=== PATIENT | male | born 1930 | race Two or more races ===

== ENCOUNTER 2018-03-14 14:45 | Inpatient (IN) | payer MEDICARE, MEDICAID ==
[~2018-03-14] VITALS: Ht 172.7 cm; Wt 97.1 kg
[2018-03-14 14:45] VITALS: BP 116/74
[~2018-03-14 14:45] MED LIST: ATOR20TA65 PO; BRIM.2 BOTHEYE; DILT180C93 PO; DORZ10DR8 OP; METO10TA3 PO; RIVA20TA PO; SIME125T3 PO; TAMS-11 PO; TIMO5DRO32 OP
[2018-03-14] MEDS ORDERED: HYDROCODONE/ACETAMINOPHEN 5/325MG TABLET PO PRN (17:45)
[2018-03-14 19:17] LABS: BASOPHILS % 0.9 % (0.0-2.0); EOSINOPHILS % 1.5 % (0.0-5.0); HEMATOCRIT. 43.1 % (42.0-52.0); HEMOGLOBIN. 14.5 g/dL (14.0-18.0); LYMPHOCYTES % 20.2 % (20.0-50.0); MEAN CORPUSCULAR HEMOGLOBIN 30.2 pg (28.0-32.0); MEAN CORPUSCULAR VOLUME 89.9 fL (80.0-94.0); MEAN PLATELET VOLUME 9.3 fl (7.4-10.4); MONOCYTES % 9.5 % (2.0-8.0); NEUTROPHILS % 67.9 % (40.0-76.0); PLATELET 127 x1000/uL (130-400); RED BLOOD CELL COUNT 4.79 mill/uL (4.7-6.1); RED CELL DISTRIBUTION WIDTH 13.4 % (11.6-14.6)
[2018-03-14 19:18] LABS: CHLORIDE 107 mEq/L (98-107)
[2018-03-14 19:23] LABS: PROTHROMBIN TIME 10.3 sec (9.4-11.6)
[2018-03-14 20:00] VITALS: BP 136/73
[2018-03-14] MEDS ORDERED: PNEUMOCOCCAL 23-VAL P-SAC VAC 0.5 ML IM ONE (20:00)
[2018-03-14] MEDS ORDERED: WARFARIN SODIUM 5MG TABLET PO NR (20:00)
[2018-03-14] MEDS: ACETAMINOPHEN 650MG/20.3ML UDC PO PRN (21:26)
[2018-03-14] MEDS: ATORVASTATIN CALCIUM 20MG TABLET PO SCH (21:27)
[2018-03-14] MEDS: ZOLPIDEM TARTRATE 5MG TABLET PO PRN (21:28)
[2018-03-14] MEDS: DILTIAZEM HCL 90MG CAPSULE SR 12HR PO SCH (21:28)
[2018-03-14] MEDS: ENOXAPARIN 100MG/ML SYR SUBCUT SCH (21:30)
[2018-03-14] MEDS: TIMOLOL MALEATE 0.25% OPHTH DROPS 5ML EACHEYE SCH (21:33)
[2018-03-15] MEDS: METOCLOPRAMIDE HCL 10MG TABLET PO SCH (06:32)
[2018-03-15 07:05] LABS: PROTHROMBIN TIME 10.7 sec (9.4-11.6)
[2018-03-15 07:21] LABS: CHLORIDE 107 mEq/L (98-107)
[2018-03-15 07:24] LABS: BASOPHILS % 0.8 % (0.0-2.0); EOSINOPHILS % 1.3 % (0.0-5.0); HEMOGLOBIN. 15.1 g/dL (14.0-18.0); LYMPHOCYTES % 20.3 % (20.0-50.0); MEAN CORPUSCULAR HEMOGLOBIN 30.3 pg (28.0-32.0); MEAN PLATELET VOLUME 10.3 fl (7.4-10.4); MONOCYTES % 7.7 % (2.0-8.0); NEUTROPHILS % 69.9 % (40.0-76.0); PLATELET 129 x1000/uL (130-400); RED CELL DISTRIBUTION WIDTH 13.5 % (11.6-14.6)
[2018-03-15 07:54] VITALS: BP 123/60
[2018-03-15] MEDS: SIMETHICONE 80MG TABLET CHEW PO SCH ×3 (09:02→17:18)
[2018-03-15] MEDS: TAMSULOSIN HCL 0.4MG SR CAPSULE PO SCH (09:02)
[2018-03-15] MEDS: DILTIAZEM HCL 90MG CAPSULE SR 12HR PO SCH ×2 (09:02→20:38)
[2018-03-15] MEDS: TIMOLOL MALEATE 0.25% OPHTH DROPS 5ML EACHEYE SCH ×2 (09:03→20:38)
[2018-03-15] MEDS: ENOXAPARIN 100MG/ML SYR SUBCUT SCH ×2 (09:03→20:38)
[2018-03-15] MEDS: DORZOLAMIDE 2% OPHTH 10 ML BOTTLE BOTHEYE SCH (09:03)
[2018-03-15] MEDS: BRIMONIDINE 0.2% OPHTH DROPS 5ML BOTHEYE SCH ×3 (09:03→17:18)
[2018-03-15] MEDS: ACETAMINOPHEN 650MG/20.3ML UDC PO PRN (13:32)
[2018-03-15] MEDS ORDERED: WARFARIN SODIUM 7.5MG TABLET PO NR (18:00)
[2018-03-15 20:00] VITALS: BP 134/60
[2018-03-15] MEDS: ATORVASTATIN CALCIUM 20MG TABLET PO SCH (20:38)
[2018-03-15] MEDS: ZOLPIDEM TARTRATE 5MG TABLET PO PRN (22:08)
[2018-03-16] MEDS: METOCLOPRAMIDE HCL 10MG TABLET PO SCH (06:23)
[2018-03-16 07:32] LABS: BASOPHILS % 0.6 % (0.0-2.0); EOSINOPHILS % 1.3 % (0.0-5.0); HEMATOCRIT. 42.6 % (42.0-52.0); HEMOGLOBIN. 14.6 g/dL (14.0-18.0); LYMPHOCYTES % 26.2 % (20.0-50.0); MEAN CORPUSCULAR HEMOGLOBIN 30.5 pg (28.0-32.0); MEAN CORPUSCULAR VOLUME 89.2 fL (80.0-94.0); MEAN PLATELET VOLUME 9.8 fl (7.4-10.4); MONOCYTES % 8.1 % (2.0-8.0); NEUTROPHILS % 63.8 % (40.0-76.0); PLATELET 127 x1000/uL (130-400); RED BLOOD CELL COUNT 4.77 mill/uL (4.7-6.1); RED CELL DISTRIBUTION WIDTH 13.6 % (11.6-14.6)
[2018-03-16 07:33] LABS: INR 1.2; PROTHROMBIN TIME 12.7 sec (9.4-11.6)
[2018-03-16 07:46] LABS: CHLORIDE 106 mEq/L (98-107)
[2018-03-16 08:00] VITALS: BP 96/69
[2018-03-16 08:03] LABS: HDL CHOLESTEROL 27 mg/dL (40-59); LDL CHOLESTEROL 71 mg/dL (5-100); PHOSPHORUS 3.4 mg/dL (2.5-4.9)
[2018-03-16 08:19] LABS: FOLIC ACID (FOLATE) SERUM 7.8 ng/mL (>5.38)
[2018-03-16] MEDS: DILTIAZEM HCL 90MG CAPSULE SR 12HR PO SCH ×2 (09:00→20:46)
[2018-03-16] MEDS: ENOXAPARIN 100MG/ML SYR SUBCUT SCH ×2 (09:11→20:46)
[2018-03-16] MEDS: TIMOLOL MALEATE 0.25% OPHTH DROPS 5ML EACHEYE SCH ×2 (09:11→20:46)
[2018-03-16] MEDS: DORZOLAMIDE 2% OPHTH 10 ML BOTTLE BOTHEYE SCH (09:11)
[2018-03-16] MEDS: BRIMONIDINE 0.2% OPHTH DROPS 5ML BOTHEYE SCH ×3 (09:11→17:25)
[2018-03-16] MEDS: TAMSULOSIN HCL 0.4MG SR CAPSULE PO SCH (09:45)
[2018-03-16] MEDS: SIMETHICONE 80MG TABLET CHEW PO SCH ×3 (10:02→17:24)
[2018-03-16 11:34] LABS: PROSTRATE SPECIFIC AG TOTAL 3.14 ng/mL (0.0-4.0)
[2018-03-16] MEDS: DOCUSATE SODIUM 100MG CAPSULE PO SCH (17:23)
[2018-03-16] MEDS: CYANOCOBALAMIN 1000MCG/ML VIAL IM SCH (17:24)
[2018-03-16] MEDS ORDERED: WARFARIN SODIUM 10MG TABLET PO NR (18:00)
[2018-03-16 20:00] VITALS: BP 145/79
[2018-03-16] MEDS: ATORVASTATIN CALCIUM 20MG TABLET PO SCH (20:46)
[2018-03-16] MEDS: DEXAMETHASONE 10 MG/ML VIAL IV SCH (22:20)
[2018-03-16] MEDS: ZOLPIDEM TARTRATE 5MG TABLET PO PRN (22:20)
[2018-03-17] MEDS: METOCLOPRAMIDE HCL 10MG TABLET PO SCH (06:17)
[2018-03-17 07:57] LABS: INR 2.6; PROTHROMBIN TIME 27.1 sec (9.4-11.6)
[2018-03-17 08:00] VITALS: BP 142/94
[2018-03-17] MEDS: CYANOCOBALAMIN 1000MCG/ML VIAL IM SCH (08:22)
[2018-03-17] MEDS: ENOXAPARIN 100MG/ML SYR SUBCUT SCH (08:23)
[2018-03-17] MEDS: DILTIAZEM HCL 90MG CAPSULE SR 12HR PO SCH ×2 (08:23→21:23)
[2018-03-17] MEDS: SIMETHICONE 80MG TABLET CHEW PO SCH ×3 (08:23→17:10)
[2018-03-17] MEDS: DORZOLAMIDE 2% OPHTH 10 ML BOTTLE BOTHEYE SCH (08:24)
[2018-03-17] MEDS: TIMOLOL MALEATE 0.25% OPHTH DROPS 5ML EACHEYE SCH ×2 (08:24→21:45)
[2018-03-17] MEDS: TAMSULOSIN HCL 0.4MG SR CAPSULE PO SCH (08:24)
[2018-03-17] MEDS: DOCUSATE SODIUM 100MG CAPSULE PO SCH ×2 (08:24→17:09)
[2018-03-17] MEDS: BRIMONIDINE 0.2% OPHTH DROPS 5ML BOTHEYE SCH ×3 (08:24→17:10)
[2018-03-17 20:00] VITALS: BP 126/70
[2018-03-17] MEDS: ATORVASTATIN CALCIUM 20MG TABLET PO SCH (21:22)
[2018-03-17] MEDS: ZOLPIDEM TARTRATE 5MG TABLET PO PRN (21:54)
[2018-03-17] MEDS: DEXAMETHASONE 10 MG/ML VIAL IV SCH (22:03)
[2018-03-18] MEDS: METOCLOPRAMIDE HCL 10MG TABLET PO SCH (06:16)
[2018-03-18 08:15] VITALS: BP 136/82
[2018-03-18] MEDS: SIMETHICONE 80MG TABLET CHEW PO SCH ×3 (10:13→17:05)
[2018-03-18] MEDS: DOCUSATE SODIUM 100MG CAPSULE PO SCH ×2 (10:14→17:06)
[2018-03-18] MEDS: TAMSULOSIN HCL 0.4MG SR CAPSULE PO SCH (10:14)
[2018-03-18] MEDS: CYANOCOBALAMIN 1000MCG/ML VIAL IM SCH (10:15)
[2018-03-18] MEDS: DILTIAZEM HCL 90MG CAPSULE SR 12HR PO SCH ×2 (10:15→21:56)
[2018-03-18] MEDS: BRIMONIDINE 0.2% OPHTH DROPS 5ML BOTHEYE SCH ×3 (10:21→17:07)
[2018-03-18] MEDS: TIMOLOL MALEATE 0.25% OPHTH DROPS 5ML EACHEYE SCH ×2 (10:21→21:52)
[2018-03-18] MEDS: DORZOLAMIDE 2% OPHTH 10 ML BOTTLE BOTHEYE SCH (10:22)
[2018-03-18 11:28] LABS: HEMATOCRIT 44.4 % (42.0-52.0); HEMOGLOBIN 14.7 g/dL (14.0-18.0); MEAN CORPUSCULAR HEMOGLOBIN 30.1 pg (28.0-32.0); MEAN CORPUSCULAR VOLUME 90.9 fL (80.0-94.0); PLATELET 137 x1000/uL (130-400); RED BLOOD CELL COUNT 4.89 mill/uL (4.7-6.1); RED CELL DISTRIBUTION WIDTH 13.6 % (11.6-14.6)
[2018-03-18 11:37] LABS: INR 3.5; PROTHROMBIN TIME 36.4 sec (9.4-11.6)
[2018-03-18 11:48] LABS: CHLORIDE 102 mEq/L (98-107)
[2018-03-18] MEDS ORDERED: DEXTROSE 50% WATER 50ML SYRINGE IV PRN (16:45)
[2018-03-18] MEDS: BLOOD SUGAR DIAGNOSTIC STRIP TEST SCH ×2 (17:00→21:00)
[2018-03-18] MEDS: INSULIN LISPRO 100 UNITS/ML SUBCUT SCH ×2 (17:52→22:06)
[2018-03-18 19:53] LABS: CLARITY URINE CLEAR (CLEAR); COLOR URINE YELLOW (YELLOW); KETONES URINE NEGATIVE (NEGATIVE); LEUKOCYTE ESTERASE URINE NEGATIVE (NEGATIVE); NITRITE URINE NEGATIVE (NEGATIVE); OCCULT BLOOD URINE NEGATIVE (NEGATIVE); PH URINE 5.5 (4.5-8.0); PROTEIN URINE NEGATIVE (NEGATIVE); SPECIFIC GRAVITY URINE 1.022 (1.005-1.030); UROBILINOGEN URINE 0.2 E.U./dL (0.2-1.0)
[2018-03-18 20:00] VITALS: BP 106/65
[2018-03-18] MEDS: DEXAMETHASONE 10 MG/ML VIAL IV SCH (21:53)
[2018-03-18] MEDS: ZINC SULFATE 220 MG ( 50 ) CAPSULE PO SCH (21:53)
[2018-03-18] MEDS: ZOLPIDEM TARTRATE 5MG TABLET PO PRN (21:53)
[2018-03-18] MEDS: ATORVASTATIN CALCIUM 20MG TABLET PO SCH (21:53)
[2018-03-19] MEDS: BLOOD SUGAR DIAGNOSTIC STRIP TEST SCH ×2 (06:13→11:15)
[2018-03-19] MEDS: METOCLOPRAMIDE HCL 10MG TABLET PO SCH (06:13)
[2018-03-19 06:36] LABS: INR 3.8; PROTHROMBIN TIME 40.1 sec (9.4-11.6)
[2018-03-19 07:00] VITALS: BP 129/75
[2018-03-19] MEDS: BRIMONIDINE 0.2% OPHTH DROPS 5ML BOTHEYE SCH ×2 (08:38→12:23)
[2018-03-19] MEDS: DORZOLAMIDE 2% OPHTH 10 ML BOTTLE BOTHEYE SCH (08:38)
[2018-03-19] MEDS: TIMOLOL MALEATE 0.25% OPHTH DROPS 5ML EACHEYE SCH (08:38)
[2018-03-19] MEDS: ZINC SULFATE 220 MG ( 50 ) CAPSULE PO SCH (08:39)
[2018-03-19] MEDS: TAMSULOSIN HCL 0.4MG SR CAPSULE PO SCH (08:39)
[2018-03-19] MEDS: DOCUSATE SODIUM 100MG CAPSULE PO SCH (08:39)
[2018-03-19] MEDS: SIMETHICONE 80MG TABLET CHEW PO SCH ×2 (08:39→12:23)
[2018-03-19] MEDS: DILTIAZEM HCL 90MG CAPSULE SR 12HR PO SCH (08:40)
[2018-03-19] MEDS: INSULIN LISPRO 100 UNITS/ML SUBCUT SCH ×2 (08:41→12:36)
[2018-03-19 12:50] VITALS: BP 121/72
[2018-03-19 13:15] VITALS: BP 121/72
[2018-03-20 19:06] LABS: 25-HYDROXY VITAMIN D3 8.1 ng/mL (.)
== END 2018-03-19 14:05 | disposition home health service (06) | DRG 65 ==
PROVIDERS: ADMIT Physical Medicine & Rehabilitation Spinal Cord Injury Medicine; ATTEND Internal Medicine Nephrology
DX: I63.8 Other cerebral infarction (principal); E46 Unspecified protein-calorie malnutrition; H40.9 Unspecified glaucoma; F17.210 Nicotine dependence, cigarettes, uncomplicated; E78.5 Hyperlipidemia, unspecified; N40.0 Benign prostatic hyperplasia without lower urinary tract symptoms; H54.8 Legal blindness, as defined in USA; R26.9 Unspecified abnormalities of gait and mobility; D69.6 Thrombocytopenia, unspecified; I10 Essential (primary) hypertension; E78.00 Pure hypercholesterolemia, unspecified; I48.2 Chronic atrial fibrillation; F01.50 Vascular dementia, unspecified severity, without behavioral disturbance, psychotic disturbance, mood disturbance, and anxiety; F32.9 Major depressive disorder, single episode, unspecified; Z79.01 Long term (current) use of anticoagulants; Z86.73 Personal history of transient ischemic attack (TIA), and cerebral infarction without residual deficits; Z90.49 Acquired absence of other specified parts of digestive tract; Z79.899 Other long term (current) drug therapy; Z82.49 Family history of ischemic heart disease and other diseases of the circulatory system; Z68.32 Body mass index [BMI] 32.0-32.9, adult; Z79.02 Long term (current) use of antithrombotics/antiplatelets
CPT/HCPCS: 36415; 80048; 80053; 80061; 81003; 82306; 82607; 82746; 82962; 83036; 83735; 84100; 84134; 84153; 84443; 84630; 85025; 85027; 85610; 90732; 92523; 92610; 93970; 97116; 97162; 97166; 97530; 97535; J1100; J1650; J1815; J3420; J8597